=== PATIENT | male | born 2000 | race Hispanic/Latino ===

== ENCOUNTER 2021-01-12 00:55 | Emergency (ER) | payer OTHER, SELFPAY ==
[2021-01-12 01:53] LABS: Absolute Lymphocytes (CBC) 1.4 K/uL (0.7-4.9); Basophils % 0.4 % (0-1.3); Hematocrit 44.8 % (39.6-49.0); Lymphocytes % 16.2 % (15.3-44.8); MPV 8.2 fL (7.6-11.3); RBC Red Blood Cell Count 4.95 M/uL (4.33-5.43)
[2021-01-12 01:57] LABS: Protime INR 0.92
[2021-01-12 02:17] LABS: ALT/SGPT 123 U/L (12-78); Alkaline Phosphatase 117 U/L (45-117); BUN Blood Urea Nitrogen 14 mg/dL (7-18); Bicarbonate 28 mmol/L (21-32); Bilirubin Direct < 0.1 mg/dL (0-0.2); Bilirubin Total 0.2 mg/dL (0.2-1.0); Glucose Level 102 mg/dL (74-106); Magnesium 2.2 mg/dL (1.8-2.4); NT PRO-BNP 20 pg/mL (<125); Potassium 3.8 mmol/L (3.5-5.1); Sodium Level 138 mmol/L (136-145); Troponin (Emerg Dept Use Only) < 0.02 ng/mL (0.0-0.045)
[2021-01-12 02:18] LABS: AST/SGOT 425 U/L (15-37)
[2021-01-12] MEDS ORDERED: ONDANSETRON 4 MG/2 ML VIAL ONE (02:26)
[2021-01-12] MEDS ORDERED: MAGNES/ALUMIN/SIMET 30ML UCUP ONE (02:26)
[2021-01-12] MEDS ORDERED: LIDOCAINE VISCOUS 2% SOLN 15 ML UDC ONE (02:27)
[2021-01-12] MEDS ORDERED: FAMOTIDINE 20 MG/2 ML VIAL IV ONE (02:27)
--- NOTE | 2021-01-12 02:55 | ER ---
Nurse's Notes [facility] Name: Martha Thao Age: 20 yrs Sex: Male : 2000 Arrival Date: 01/12/2021 Time: 00:58 Bed 18 Private MD: Diagnosis: Chest pain, unspecified;Hepatitis Presentation: 01/12 01:03 Chief complaint: Patient states: reports chest pain that started 3 days ago, reports em numbness in both fingers that is still there, also reports vomiting once. Coronavirus screen: Vaccine status: Patient reports receiving the 1st dose of the Covid vaccine. Ebola Screen: Patient negative for fever greater than or equal to 101.5 degrees Fahrenheit, and additional compatible Ebola Virus Disease symptoms Patient denies exposure to infectious person. Patient denies travel to an Ebola-affected area in the 21 days before illness onset. No symptoms or risks identified at this time. Initial Sepsis Screen: Does the patient meet any 2 criteria? HR > 90 bpm. No. Patient's initial sepsis screen is negative. Does the patient have a suspected source of infection? No. Patient's initial sepsis screen is negative. Risk Assessment: Do you want to hurt yourself or someone else? Patient reports no desire to harm self or others. Onset of symptoms was January 12, 2021. 01:03 Method Of Arrival: Ambulatory em 01:03 Acuity: HANNAH 3 em Triage Assessment: 01:34 General: Appears in no apparent distress. Behavior is calm, cooperative, appropriate lh3 for age. Pain: Complains of pain in anterior aspect of left upper chest. Cardiovascular: Reports chest pain, Heart tones S1 S2 present Capillary refill < 3 seconds. Historical: - Allergies: 01:07 No Known Allergies; em - PMHx: 01:07 None; em - PSHx: 01:07 None; em - Immunization history:: Client reports receiving the 1st dose of the Covid vaccine. - Social history:: Smoking status: Patient denies any tobacco usage or history of. Screenin:35 Abuse screen: Denies threats or abuse. Nutritional screening: No deficits noted. lh3 Tuberculosis screening: No symptoms or risk factors identified. Fall Risk IV access (20 points). Assessment: 01:35 Pain: Complains of pain in chest Pain does not radiate. Pain began 1 hour ago. lh3 01:43 Cardiovascular: Reports chest pain, Rhythm is sinus rhythm Chest pain is described as lh3 mild, began 1 hour prior to arrival. Vital Signs: 01:03 BP 142 / 73; Pulse 102; Resp 20; Temp 97.4; Pulse Ox 98% on R/A; Height 5 ft. 9 in. em (175.26 cm); Pain 6/10; 01:43 BP 127 / 69; Pulse 95; Resp 18; Pulse Ox 99% on R/A; lh3 04:20 BP 114 / 72; Pulse 80; Resp 18; Pulse Ox 99% on R/A; lh3 Vitals: 01:43 Cardiac Rhythm Assessment Regular Sinus rhythm. lh3 [place] Coma Score: 01:43 Eye Response: spontaneous(4). Verbal Response: oriented(5). Motor Response: obeys lh3 commands(6). Total: 15. ED Course: 00:58 Patient arrived in ED. bp1 01:07 Triage completed. em 01:07 Arm band placed on. em 01:09 Deven Edwards PA is PHCP. [facility] 01:09 Jerome Tapia MD is Attending Physician. m 01:33 Richelle Oconnor RN is Primary Nurse. lh3 01:33 CBC with Automated Diff Sent. lh3 01:33 Liver (Hepatic) Function Sent. lh3 01:33 Basic Metabolic Panel Sent. lh3 01:33 D-Dimer Sent. lh3 01:33 Basic Metabolic Panel Sent. lh3 01:33 CBC with Diff Sent. lh3 01:33 LFT's Sent. lh3 01:33 Magnesium Sent. lh3 01:33 NT PRO-BNP Sent. lh3 01:33 PT-INR Sent. lh3 01:33 Troponin (emerg Dept Use Only) Sent. lh3 01:35 Patient has correct armband on for positive identification. Bed in low position. Call 3 light in reach. Side rails up X 1. Adult w/ patient. quality assurance monitor body on. Pulse ox on. NIBP on. 01:35 No provider procedures requiring assistance completed. Inserted saline lock: 20 gauge lh3 in left antecubital area, using aseptic technique. Patient maintains SpO2 saturation greater than 95% on room air. 01:36 XRAY Chest (1 view) In Process Unspecified. EDMS 01:43 Door closed. Noise minimized. Visitors limited. Moved to private room. lh3 02:18 Notified Nurse Practitioner and/or Physician Track Walker of a critical lab result(s), AST bb 425 Deven VAZ notified. 02:45 US Abdomen Limited In Process Unspecified. EDMS 04:19 IV discontinued, bleeding controlled. lh3 Administered Medications: 02:03 Drug: Pepcid (famotidine) 20 mg Route: IVP; Site: left antecubital; lh3 04:14 Follow up: Response: No adverse reaction 3 02:03 Drug: Zofran (Ondansetron) 4 mg Route: IVP; Site: left antecubital; lh3 04:14 Follow up: Response: No adverse reaction 3 02:03 Drug: GI Cocktail without - (Maalox Suspension 30 ml, Lidocaine Liquid 2 % 15 lh3 ml) Route: PO; 04:14 Follow up: Response: No adverse reaction 3 03:42 Drug: NS 0.9% 1000 ml Route: IV; Rate: 1 bolus; Site: left antecubital; lh3 04:13 Follow up: Response: No adverse reaction; IV Status: Completed infusion lh3 Outcome: 02:54 Discharge ordered by . ian 04:19 Discharged to home with family. lh3 04:19 Condition: stable 04:19 Discharge instructions given to patient, Instructed on discharge instructions, follow up and referral plans. Demonstrated understanding of instructions. 04:20 Patient left the ED. 3 Signatures: Dispatcher [employer] Deven Vu PA PA jmm Munoz, Edgar, RN RN em Ballard, Brenda RN Montse Godfrey Latisha RN RN 3
--- NOTE | 2021-01-12 02:55 | EDPHYS ---
Physician Documentation [facility] Name: Martha Thao Age: 20 yrs Sex: Male : 2000 Arrival Date: 01/12/2021 Time: 00:58 Bed 18 Private MD: ED Physician Jerome Tapia HPI: 01/12 01:53 This 20 yrs old Male presents to ER via Ambulatory with complaints of Chest jm Pain, Numbness Of Hand. 01:53 The patient or guardian reports chest pain that is located primarily in the substernal [facility] area. The pain does not radiate. Associated signs and symptoms: Pertinent positives: vomiting. The chest pain is described as aching, a pressure. Duration: The patient or guardian reports a single episode, that is still ongoing, and worsening. Modifying factors: The symptoms are alleviated by nothing. the symptoms are aggravated by nothing. The patient has not experienced similar symptoms in the past. Is a 20-year-old male with no chronic medical conditions that presents to the emergency department with complaints of chest pain beginning approximately 3 days ago. Patient states the pain has been constant and intensified this evening after 1 episode of vomiting. Patient denies diarrhea, fever. Patient denies recreational drug use. Denies family history of sudden cardiac .. 01:55 Patient also complains of tingling to the fingers in both hands. [facility] Historical: - Allergies: 01:07 No Known Allergies; em - PMHx: 01:07 None; em - PSHx: 01:07 None; em - Immunization history:: Client reports receiving the 1st dose of the Covid vaccine. - Social history:: Smoking status: Patient denies any tobacco usage or history of. ROS: 01:53 Constitutional: Negative for fever, chills, and weight loss. jmm 01:53 Cardiovascular: Positive for chest pain. 01:53 Abdomen/GI: Positive for vomiting. 01:53 All other systems are negative. Exam: 01:53 Constitutional: This is a well developed, well nourished patient who is awake, alert, jmm and in no acute distress. Head/Face: atraumatic. Eyes: EOMI, no conjunctival erythema appreciated ENT: Moist Mucus Membranes Neck: Trachea midline, Supple Chest/axilla: Normal chest wall appearance and motion. Cardiovascular: Regular rate and rhythm. No edema appreciated Respiratory: Normal respirations, no respiratory distress appreciated Abdomen/GI: Non distended, soft Back: Normal ROM Skin: General appearance color normal MS/ Extremity: Moves all extremities, no obvious deformities appreciated, no edema noted to the lower extremities Neuro: Awake and alert, normal gait Psych: Behavior is normal, Mood is normal, Patient is cooperative and pleasant 01:53 Chest/axilla: Inspection: normal, Palpation: tenderness, that is moderate, of the anterior aspect of right upper chest and anterior aspect of left upper chest. Vital Signs: 01:03 BP 142 / 73; Pulse 102; Resp 20; Temp 97.4; Pulse Ox 98% on R/A; Height 5 ft. 9 in. em (175.26 cm); Pain 6/10; 01:43 BP 127 / 69; Pulse 95; Resp 18; Pulse Ox 99% on R/A; lh3 04:20 BP 114 / 72; Pulse 80; Resp 18; Pulse Ox 99% on R/A; lh3 [place] Coma Score: 01:43 Eye Response: spontaneous(4). Verbal Response: oriented(5). Motor Response: obeys lh3 commands(6). Total: 15. MDM: 01:09 Patient medically screened. elena 02:52 Data reviewed: vital signs, nurses notes. Counseling: I had a detailed discussion with abner the patient and/or guardian regarding: the historical points, exam findings, and any diagnostic results supporting the discharge/admit diagnosis, lab results, radiology results, the need for outpatient follow up, to return to the emergency department if symptoms worsen or persist or if there are any questions or concerns that arise at home. ED course: Ultrasound is unremarkable. Common bile duct is normal. AST is greater than ALT. I did discuss with the patient if he had drank alcohol previously. Patient denies this. Patient has no abdominal pain. Is able to tolerate p.o. in the ED. Pain is alleviated. Patient advised to follow success coach for further evaluation and otherwise given strict return precautions. Patient understood and agrees plan of care.. 01/12 01:09 Order name: Basic Metabolic Panel [facility] 01/12 01:09 Order name: CBC with Diff [facility] 01/12 01:09 Order name: LFT's [facility] 01/12 01: Order name: Magnesium; Complete Time: 02:28 [facility] 01/12 01:09 Order name: NT PRO-BNP; Complete Time: 02:28 m 01/12 01:09 Order name: PT-INR; Complete Time: 02:13 m 01/12 01:09 Order name: Troponin (emerg Dept Use Only); Complete Time: 02:28 m 01/12 01:09 Order name: XRAY Chest (1 view); Complete Time: 17:28 [facility] 01/12 01:09 Order name: D-Dimer; Complete Time: 02:13 [facility] 01/12 01:09 Order name: Basic Metabolic Panel; Complete Time: 02:28 EDMS 01/12 01:09 Order name: CBC with Automated Diff; Complete Time: 02:13 EDNJ 01/12 01:09 Order name: Liver (Hepatic) Function; Complete Time: 02:28 EDNJ 01/12 02:30 Order name: [place] Screen Profile; Complete Time: 17:28 [facility] 01/12 02:36 Order name: Lipase; Complete Time: 02:55 [facility] 01/12 01:09 Order name: EKG; Complete Time: 01:10 m 01/12 01:09 Order name: Cardiac monitoring; Complete Time: 01:33 m 01/12 01:09 Order name: EKG - Nurse/Tech; Complete Time: 01:16 m 01/12 01:09 Order name: IV Saline Lock; Complete Time: 01:33 jmm 01/12 01:09 Order name: Labs collected and sent; Complete Time: 01:33 jmm 01/12 01:09 Order name: O2 Per Protocol; Complete Time: 01:33 [facility] 01/12 01:09 Order name: O2 Sat Monitoring; Complete Time: :33 [facility] 01/12 02:18 Order name: US Abdomen Limited; Complete Time: 17:28 jmm Administered Medications: 02:03 Drug: Pepcid (famotidine) 20 mg Route: IVP; Site: left antecubital; lh3 04:14 Follow up: Response: No adverse reaction lh3 02:03 Drug: Zofran (Ondansetron) 4 mg Route: IVP; Site: left antecubital; lh3 04:14 Follow up: Response: No adverse reaction lh3 02:03 Drug: GI Cocktail without - (Maalox Suspension 30 ml, Lidocaine Liquid 2 % 15 lh3 ml) Route: PO; 04:14 Follow up: Response: No adverse reaction lh3 03:42 Drug: NS 0.9% 1000 ml Route: IV; Rate: 1 bolus; Site: left antecubital; lh3 04:13 Follow up: Response: No adverse reaction; IV Status: Completed infusion lh3 Disposition: 04:50 Co-signature as Attending Physician, Jerome Tapia MD I agree with the assessment and elena plan of care. Disposition Summary: 01/12/21 02:54 Discharge Ordered Location: Home jm Condition: Stable jmm Diagnosis - Chest pain, unspecified jmm - Hepatitis jmm Followup: jmm - With: Private Physician - When: 2 - 3 days - Reason: Recheck today's complaints, Continuance of care, Re-evaluation by your physician Discharge Instructions: - Discharge Summary Sheet jmm - Nonspecific Chest Pain, Adult jmm - Eating Plan for Hepatitis [facility] Forms: - Medication Reconciliation Form [facility] - Thank You Letter jmm - Antibiotic Education jmm - Prescription Opioid Use [facility] Signatures: Dispatcher [employer] Jerome Rodgers MD MD cha Mickail, Joel, PA PA [facility] Michael Ho, RN RN Richelle Lazar RN RN lh3
[2021-01-12] MEDS ORDERED: NA CHLORIDE 0.9% 1,000 ML ONE (03:34)
[2021-01-12 04:26] VITALS: TEMP 97.4
[2021-01-12 04:27] VITALS: O2SAT 99
[2021-01-12 04:28] VITALS: BP 114/72
--- NOTE | 2021-01-12 07:00 | RAD REPORT ---
EXAM DESCRIPTION: US - Abdomen Exam Limited - 01/12/2021 2:50 am CLINICAL HISTORY: ABD PAIN COMPARISON: No comparisons FINDINGS: The gallbladder demonstrates no gallstones. No pericholecystic fluid or gallbladder wall t hickening. The common bile duct is normal measuring 3 mm. Gallbladder was contracted. The liver demonstrates no findings of intrahepatic biliary dilatation. IMPRESSION: Contracted gallbladder as the patient was not fasting. No cholelithiasis or sonographic evidence of acute cholecystitis
--- NOTE | 2021-01-12 07:01 | RAD REPORT ---
EXAM DESCRIPTION: RAD - Chest Single View - 01/12/2021 1:36 am CLINICAL HISTORY: CHEST PAIN COMPARISON: No comparisons FINDINGS: Lines: None. Lungs: No evidence of edema or pneumonia. Pleural: No significant pleural effusions or pneumothorax. Cardiac: The heart size is within normal limits. Bones: No acute fractures. Other: IMPRESSION: No acute cardiopulmonary disease.
== END 2021-01-12 04:20 | disposition home or self-care (01) ==
LOC: ER 00:55
DX: K75.9 Inflammatory liver disease, unspecified (principal)
CPT/HCPCS: 36415; 71045; 76705; 80048; 80076; 83690; 83735; 83880; 84484; 85025; 85379; 85610; 86308; 93005; 96361; 96374; 96375; 99285; J2405; J7030